=== PATIENT | male | born 2000 | race Caucasian/White ===

== ENCOUNTER 2021-12-27 09:29 | Emergency (ER) | payer MEDICAID ==
[~2021-12-27] VITALS: Ht 177.8 cm; Wt 90.7 kg
[2021-12-27 09:45] VITALS: BP_SYST 150
[2021-12-27] MEDS ORDERED: MORPHINE 4 MG INJ. 4 MG/ML VIAL IVP ONE ×2 (10:00→11:00)
[2021-12-27] MEDS ORDERED: IBUP-1969 PO (11:31)
[2021-12-27] MEDS ORDERED: ACET-2634 PO (11:31)
[2021-12-27 12:20] VITALS: BP_SYST 142
== END 2021-12-27 12:22 | disposition home or self-care (01) ==
LOC: SED 09:29
DX: S93.401A Sprain of unspecified ligament of right ankle, initial encounter (principal); R03.0 Elevated blood-pressure reading, without diagnosis of hypertension; W20.8XXA Other cause of strike by thrown, projected or falling object, initial encounter; Y93.89 Activity, other specified; Y92.89 Other specified places as the place of occurrence of the external cause; Y99.8 Other external cause status
CPT/HCPCS: 29515; 73610; 73630; 96374; 96376; 99284; J2270